=== PATIENT | male | born 1995 | race Two or more races ===

== ENCOUNTER 2017-12-05 09:52 | Emergency (ER) | payer MEDICAID, OTHER ==
[~2017-12-05] VITALS: Ht 177.8 cm; Wt 77.1 kg
[~2017-12-05 09:52] MED LIST: IBUP-1953 PO
[2017-12-05 09:54] VITALS: BP 122/73
[2017-12-05] MEDS ORDERED: ACETAMINOPHEN 325 MG TABLET PO ONE (10:30)
[2017-12-05] MEDS ORDERED: MAG HYDROX/AL HYDROX/SIMETH 30 ML UDC PO ONE (10:30)
[2017-12-05] MEDS ORDERED: FAMOTIDINE (20 MG) 20 MG TABLET PO ONE (10:30)
[2017-12-05] MEDS ORDERED: FAMOTIDINE (20 MG) 20 MG TABLET ONE (10:47)
[2017-12-05] MEDS ORDERED: MAG HYDROX/AL HYDROX/SIMETH 30 ML UDC ONE (10:47)
[2017-12-05] MEDS ORDERED: ACETAMINOPHEN 325 MG TABLET ONE (10:47)
== END 2017-12-05 11:15 | disposition home or self-care (01) ==
LOC: ER 09:53
DX: R19.7 Diarrhea, unspecified (principal)
CPT/HCPCS: A4606; Z7610

== ENCOUNTER 2018-04-17 07:24 | Emergency (ER) | payer SELFPAY ==
[~2018-04-17] VITALS: Ht 180.3 cm; Wt 77.1 kg
--- NOTE | 2018-04-17 07:35 | NUR ---
bentyl po as ordered-tolerated well
[2018-04-17] MEDS ORDERED: DICYCLOMINE HCL 10 MG CAPSULE PO ONE ×2 (07:43→08:00)
--- NOTE | 2018-04-17 07:49 | NUR ---
for discharge-verbalized understanding. Home ambulatory in stable condition
[2018-04-17 07:50] VITALS: BP 110/65
== END 2018-04-17 07:50 | disposition home or self-care (01) ==
LOC: ER 07:28
DX: R11.2 Nausea with vomiting, unspecified (principal); B34.9 Viral infection, unspecified; F12.90 Cannabis use, unspecified, uncomplicated
CPT/HCPCS: 99283; A4606; Z7610